=== PATIENT | female | born 1985 | race Caucasian/White ===

== ENCOUNTER 2018-06-13 14:54 | Inpatient (IN) | payer OTHER ==
[2018-06-13] MEDS ORDERED: ceFAZolin IN SWFI 2 GM/20 ML SYRINGE IVP ONE (16:26)
[2018-06-13] MEDS ORDERED: LACTATED RINGERS 1,000 ML IV ONE (16:26)
[2018-06-13] MEDS ORDERED: CITRIC ACID-SODIUM CITRATE 15 ML CUP PO ONE (16:26)
[2018-06-13] MEDS ORDERED: ceFAZolin 1,000 MG VIAL ONE (16:30)
[2018-06-13] MEDS ORDERED: OXYTOCIN 10 UNIT/ML 1 ML VIAL ONE (16:30)
[2018-06-13] MEDS ORDERED: ONDANSETRON 4 MG/2 ML VIAL ONE (16:30)
[2018-06-13] MEDS ORDERED: DEXAMETHASONE SOD PHOS (MDV) 100 MG/10 ML VIAL ONE (16:30)
[2018-06-13] MEDS ORDERED: LACTATED RINGERS 1,000 ML BAG IV ONE (16:30)
[2018-06-13] MEDS ORDERED: KETOROLAC 30 MG/ML 1 ML VIAL ONE (16:30)
[2018-06-13] MEDS ORDERED: MORPHINE SULFATE (PF) 0.3 MG/0.3 ML SYR ONE (16:30)
--- NOTE | 2018-06-13 16:34 | P.HPOB ---
History of Present Illness H&P Date: 06/13/18 Chief Complaint: 40-2/7 weeks, labor, category 3 heart tracing The patient is a 32-year-old 1 para 0 admitted at 40-2/7 weeks as established by last menstrual period and 19 week ultrasound. She is admitted from the office with significant contractions for rule out labor. Her has been complicated by a third trimester diagnosis of intrauterine growth restriction with the fetus consistently remaining between 7-90 percentile growth. testing included twice-weekly nonstress testing, weekly SD ratios, and weekly amniotic fluid index all of which have been reassuring throughout up until today. Though she carries the technical diagnosis of intr auterine growth restriction, the thinking was that she had a constitutionally small baby as both she and her were less than 6 pounds at . She was sent from the office as noted above today with contractions and her cervix 2 cm. On labor and delivery, she was found to have repetitive subtle decelerations which appeared to potentially be late in nature and then had a prolonged a deep deceleration of approximately 6-7 minutes into the 60s with slow return. It did ultimately return to baseline but continues to have relatively minimal variability. At this time, the tracing is category 3 and requires intervention immediately. As result she will be taken to the operating room for primary low-transverse section. Obstetrical history: 1 para 0 with current statistics listed in history of present illness. EDC of 06/11/2018 was established by last menstrual period and confirmed by 19 week ultrasound. Laboratory workup demonstrates a blood type of O+ with a negative antibody screen. Rubella status is immune. Remainder of the laboratory workup was within normal limits. One hour Glucola was normal and group B strep status is negative. Gynecologic history: Unremarkable with no history of any infections to include STDs. Review of Systems Review of systems is confined to history of present illness. Past Medical History History of Any Multi-Drug Resistant Organisms: None Reported Smoking Status: Never smoker Medications and Allergies Home Medications Medication Instructions Recorded Confirmed Type Pnv,Calcium 72/Iron/Folic Acid 1 each PO DAILY 06/13/18 06/13/18 History [ Plus Tablet] RX: Amoxicillin 500 mg PO Q12HR 06/13/18 06/13/18 History Allergies Allergy/AdvReac Type Severity Reaction Status Date / Time No Known Allergies Allergy Verified 06/13/18 15:12 Exam Vital Signs Temp Pulse Resp BP Pulse Ox 06/13/18 15:13 98.2 F 71 18 133/94 99 Intake and Output 06/13/18 06/13/18 06/13/18 06:59 14:59 22:59 Other: Weight 81.193 kg In general, this is a well-developed, well-nourished white female in no acute distress. Her heart has a regular rhythm and rate without murmur. Her lungs are clear to auscultation bilaterally in all bermeo. Her abdomen is gravid, nondistended, has normal active bowel sounds, soft, nontender, and without any palpable masses aside from uterine fundus. Her extremities are without any cyanosis, clubbing, or edema and are nontender to palpation bilaterally. Digital cervical examination on straights her cervix to be 2 cm dilated, 70% effaced, the vertex in presentation at -1 station. Assessment and Plan (1) Active labor at term Current Visit: Yes Status: Acute Code(s): PUO0211 - SNOMED Code(s): 92088052 (2) Non-reassuring electronic monitoring tracing Current Visit: Yes Status: Acute Code(s): O76 - ABNLT IN HEART RATE AND RHYTHM COMP LABOR AND DELIVERY SNOMED Code(s): 126279704 (3) Post-dates Current Visit: Yes Status: Acute Code(s): O48.0 - POST-TERM SNOMED Code(s): 00989199 Plan: Given the findings as described in history of present illness, I have counseled the patient and her regarding the need for immediate delivery. We will proceed to the operating room for primary low-transverse section.
[2018-06-13 16:39] LABS: Basophils # (A) 0.1 k/uL (0-0.2); Basophils % (A) 0 %; Eosinophils % (A) 0 %; HCT 47.2 % (34.0-46.0); HGB 15.8 gm/dL (11.4-16.0); Lymphocytes # (A) 1.6 k/uL (1.0-4.8); Lymphocytes % (A) 16 %; MCH 32.5 pg (25.0-35.0); MCHC 33.5 g/dL (31.0-37.0); MCV 96.9 fL (80.0-100.0); Mean Platelet Volume 8.7; Monocytes # (A) 0.4 k/uL (0-1.0); Monocytes % (A) 4 %; Neutrophils # (A) 8.2 k/uL (1.3-7.7); Neutrophils % (A) 78 %; Platelet Count 164 k/uL (150-450); RBC 4.87 m/uL (3.80-5.40); RDW 13.8 % (11.5-15.5); WBC 10.5 k/uL (3.8-10.6)
[2018-06-13] MEDS ORDERED: MORPHINE SULFATE 2 MG/ML SYRINGE IVP PRN (16:54)
[2018-06-13] MEDS ORDERED: diphenhydrAMINE 50 MG/ML 1 ML VIAL IVP PRN ×3 (16:54→17:29)
[2018-06-13] MEDS ORDERED: NALOXONE 0.4 MG/ML 1 ML VIAL IV PRN ×2 (16:54→17:29)
[2018-06-13] MEDS ORDERED: ONDANSETRON 4 MG/2 ML VIAL IVP PRN ×2 (16:54→17:29)
[2018-06-13] MEDS ORDERED: diphenhydrAMINE 25 MG CAP PO PRN (17:29)
[2018-06-13] MEDS ORDERED: HYDROcodone/APAP 7.5-325MG 1 EACH TAB PO PRN (17:29)
[2018-06-13] MEDS ORDERED: METOCLOPRAMIDE 5 MG/ML 2 ML VIAL IVP PRN (17:29)
[2018-06-13] MEDS ORDERED: diphenhydrAMINE 50 MG CAP PO PRN (17:29)
[2018-06-13] MEDS ORDERED: LANOLIN CREAM 5 GM TUBE TOPICAL PRN (17:29)
[2018-06-13] MEDS ORDERED: KETOROLAC 30 MG/ML 1 ML VIAL IVP PRN (17:29)
[2018-06-13] MEDS ORDERED: ACETAMINOPHEN TAB 325 MG TAB PO PRN (17:29)
[2018-06-13] MEDS ORDERED: ZOLPIDEM 5 MG TAB PO PRN (17:29)
[2018-06-13] MEDS ORDERED: OXYTOCIN 20 UNITS/1000 ML NS 1,000 ML IV SCH (17:30)
--- NOTE | 2018-06-13 17:38 | P.OP ---
Date of Procedure: 06/13/18 Preoperative Diagnosis: #1. 40-2/7 weeks, category 3 heart tracing remote from delivery #2. IUGR Postoperative Diagnosis: Same plus #3. Particulate meconium-stained fluid Procedure(s) Performed: #1. Primary low-transverse section Anesthesia: spinal, other Surgeon: Kendrick Carrion Director Mission [facility]: Kamryn Abarca Estimated Blood Loss (ml): 500 IV fluids (ml): 1,400 Urine output (ml): 300 Pathology: other (Placenta) Condition: stable Disposition: floor Operative Findings: Preoperatively, the patient was noted in triage to have multiple subtle decelerations possibly consistent with late decelerations and then had a roughly 6 minute prolonged a deep deceleration to the 60s with minimal variability making for a category 3 heart rate tracing remote from delivery. As result she was counseled regarding section and taken to the operating room where she was delivered of a viable 6 lbs. 6 oz. baby girl with Apgars of 7 at 1 minute and 9 at 5 minutes delivered in the right occiput transverse position. The nose and mouth were thoroughly suctioned on the abdomen prior to delivery of the . The placenta was delivered manually and intact but was sent for pathological diagnoses. cord blood was collected per protocol. The uterus, tubes, and ovaries were entirely normal aside from a very small anterior low fundal fibroid less than 1 cm in size. Description of Procedure: The patient was prepped and draped in usual fashion after spinal anesthesia was administered by the anesthesiologist. A Pfannenstiel incision was made and extended into the abdominal cavity without difficulty. The bladder peritoneum was noted to be significantly distal to the intended site of incision and was left intact. A 2 cm incision was made in the transverse plane of the lower uterine segment to enter the uterus at which time meconium-stained fluid was noted. The incision was extended in both directions using the bandage scissors. The head was delivered up and through the incision where the nose and mouth were thoroughly suctioned for meconium. The infant was then delivered onto the field where the cord was doubly clamped, cut, and the passed for resuscitative measures with weight and Apgars as noted above. A segment of cord was doubly clamped, cut, and set aside should cord gases be necessary after having collected cord blood secondary to maternal blood type of O+. The placenta was delivered manually and intact as noted above. The uterus was exteriorized and the interior cavity swept of any remaining placental or m embranous fragments. The margins of the incision were grasped with Garsia clamps and the incision closed in 2 layers. The first layer was a running locking stitch of 0 chromic catgut followed by a running imbricating layer of 0 chromic catgut, each from margin to margin. There were noted to be 2 points of bleeding just on either side of the midline which required [id number] stitches of 0 chromic catgut for hemostasis. The posterior cul-de-sac was suctioned with a guard and then sponged with a laparotomy sponge. The uterine and ovarian findings were as noted above, entirely normal. The uterus was replaced within the abdominal cavity and the gutters swept of any remaining blood, fluid, or clot. Once hemostasis of the incision had been established, the parietal peritoneum was loosely reapproximated and layer of muscles examined and found to be hemostatic. The fascia was closed with 2 running stitches of 0 Vicryl proceeding from lateral margins to the midpoint. The subcutaneous tissues were irrigated, made hemostatic with the Bovie, and not closed as they were less than 2 cm in depth. The skin was reapproximated with a running subcuticular stitch of 4-0 Vicryl from margin to margin followed by half-inch Steri-Strips placed with Mastisol. Estimated blood loss for the case was approximately 500 mL. There were no complications. All sponge, instrument, and needle counts were correct. Both mother and are resting comfortably in recovery though the has been taken to special care nursery for observation secondary to some labored breathing.
[2018-06-13] MEDS: LACTATED RINGERS 1,000 ML IV SCH ×3 (20:17→20:20)
[2018-06-13] MEDS: SENNOSIDES-DOCUSATE SODIUM 1 EACH TAB PO SCH (20:21)
[2018-06-14] MEDS: LACTATED RINGERS 1,000 ML IV SCH ×2 (01:47→19:41)
--- NOTE | 2018-06-14 05:43 | P.PN ---
Progress Note - Text Progress Note Date: 06/14/18 32 yo female status post . Post-op day #1. Patient received intrathecal Duramorph. Patient was seen today, no complaints, pain VAS score 0/10, no headache, no itching, no nausea and vomiting. Assessment and plan: Doing well in general no complications from anesthesia.
[2018-06-14 06:08] LABS: Basophils % (A) 0 %; Eosinophils % (A) 0 %; Lymphocytes # (A) 1.8 k/uL (1.0-4.8); Lymphocytes % (A) 15 %; MCH 32.5 pg (25.0-35.0); MCHC 34.2 g/dL (31.0-37.0); Monocytes # (A) 0.5 k/uL (0-1.0); Monocytes % (A) 4 %; Neutrophils # (A) 9.7 k/uL (1.3-7.7); Neutrophils % (A) 80 %; Platelet Count 149 k/uL (150-450); RBC 3.79 m/uL (3.80-5.40); RDW 13.4 % (11.5-15.5); WBC 12.2 k/uL (3.8-10.6)
[2018-06-14 06:19] LABS: HGB 12.3 gm/dL (11.4-16.0)
[2018-06-14] MEDS: IBUPROFEN 600 MG TAB PO PRN ×3 (08:17→19:57)
--- NOTE | 2018-06-14 08:45 | P.PNOBGPC ---
Subjective - Subjective Patient reports: Reports appetite normal, Reports voiding normally, Reports pain well controlled, Reports ambulating normally [place]: doing well, in NICU (Weaning from high flow oxygen, will try feeding today.) Objective - Vital Signs Latest vital signs: Vital Signs Temp Pulse Resp BP Pulse Ox 06/14/18 08:00 97.4 F L 69 16 127/86 100 06/14/18 05:50 16 06/14/18 04:00 97.7 F 53 L 16 118/71 06/14/18 01:49 16 06/13/18 23:30 97.4 F L 60 16 125/78 98 06/13/18 22:00 16 06/13/18 20:00 97.5 F L 55 L 16 130/91 98 06/13/18 19:39 97.5 F L 55 L 16 130/91 06/13/18 19:09 55 L 16 139/86 100 06/13/18 18:39 70 16 143/87 100 06/13/18 18:24 57 L 16 150/69 100 06/13/18 18:09 98.0 F 56 L 16 117/78 100 06/13/18 17:54 63 16 122/83 100 06/13/18 17:39 98.0 F 58 L 16 115/74 06/13/18 16:54 18 98 06/13/18 15:13 98.2 F 71 18 133/94 99 Intake and Output 06/13/18 06/14/18 06/14/18 22:59 06:59 14:59 Output Total 700 250 900 Balance -700 -250 -900 Output: Urine 400 250 900 Uretheral (Zhao) 100 Emesis 300 Other: # Voids 1 # Emeses 1 Weight 81.193 kg - Exam Extremities: Present: normal Abdomen: Present: normal appearance, soft. Absent: distention, tenderness Incision: Present: normal, dry, intact Uterus: Present: normal, firm (The uterine fundus is tonic and nontender around the umbilicus.) - Labs Labs: Abnormal Lab Results - Last 24 Hours (Table) 06/13/18 06/14/18 Range/Units 16:00 05:35 WBC 12.2 H (3.8-10.6) k/uL RBC 3.79 L (3.80-5.40) m/uL Hct 47.2 H (34.0-46.0) % Plt Count 149 L (150-450) k/uL Neutrophils # 8.2 H 9.7 H (1.3-7.7) k/uL Assessment and Plan (1) Active labor at term Current Visit: Yes Status: Acute Code(s): FUC7850 - SNOMED Code(s): 54759548 (2) Non-reassuring electronic monitoring tracing Current Visit: Yes Status: Acute Code(s): O76 - ABNLT IN HEART RATE AND RHYTHM COMP LABOR AND DELIVERY SNOMED Code(s): 202925723 (3) Post-dates Current Visit: Yes Status: Acute Code(s): O48.0 - POST-TERM SNOMED Code(s): 66795772 (4) S/P section Current Visit: Yes Status: Acute Code(s): Z98.891 - HISTORY OF UTERINE SCAR FROM PREVIOUS SURGERY SNOMED Code(s): 343852148 Plan: Continue routine postoperative and care. The patient will likely remain in the hospital until the infant is released or postoperative day #4, whichever comes first. I have encouraged her to ambulate routinely in the hallways.
[2018-06-14] MEDS: SENNOSIDES-DOCUSATE SODIUM 1 EACH TAB PO SCH ×2 (15:52→19:58)
[2018-06-14] MEDS: HYDROcodone/APAP 5-325MG 1 EACH TAB PO PRN (23:18)
[2018-06-15] MEDS: IBUPROFEN 600 MG TAB PO PRN ×3 (01:48→23:51)
[2018-06-15] MEDS: HYDROcodone/APAP 5-325MG 1 EACH TAB PO PRN ×3 (05:04→19:27)
[2018-06-15] MEDS: SENNOSIDES-DOCUSATE SODIUM 1 EACH TAB PO SCH ×2 (08:10→19:27)
--- NOTE | 2018-06-15 08:53 | P.PNOBGPC ---
Subjective - Subjective Patient reports: Reports appetite normal, Reports voiding normally, Reports pain well controlled, Reports ambulating normally : doing well, in NICU (Finishing prophylactic antibiotics pending blood cultures.), nursing well Objective - Vital Signs Latest vital signs: Vital Signs Temp Pulse Pulse Resp BP Pulse Ox 06/15/18 08:45 97.8 F 100 16 116/78 100 06/15/18 00:00 97.8 F 82 16 120/73 06/14/18 18:00 16 06/14/18 16:00 97.6 F 92 16 117/70 97 06/14/18 14:00 16 06/14/18 12:00 98.2 F 87 16 132/82 98 06/14/18 11:59 16 06/14/18 10:00 16 Intake and Output 06/14/18 06/15/18 06/15/18 22:59 06:59 14:59 Other: # Voids 1 1 - Exam Extremities: Present: normal Abdomen: Present: normal appearance, soft. Absent: distention, tenderness Incision: Present: normal, dry, intact Uterus: Present: normal, firm (The uterine fundus is tonic and nontender below the umbilicus.) Assessment and Plan (1) Active labor at term Current Visit: Yes Status: Acute Code(s): NVZ6054 - SNOMED Code(s): 90854642 (2) Non-reassuring electronic monitoring tracing Current Visit: Yes Status: Acute Code(s): O76 - ABNLT IN HEART RATE AND RHYTHM COMP LABOR AND DELIVERY SNOMED Code(s): 793095327 (3) Post-dates Current Visit: Yes Status: Acute Code(s): O48.0 - POST-TERM SNOMED Code(s): 90848272 (4) S/P section Current Visit: Yes Status: Acute Code(s): Z98.891 - HISTORY OF UTERINE SCAR FROM PREVIOUS SURGERY SNOMED Code(s): 036655246 Plan: Continue routine postoperative and care. Discharge home is possible tomorrow pending the status of the . Should the infant. Released, the patient will undoubtedly be discharged pending complications. She is performing all activities of daily living. She reports the is nursing well.
[2018-06-16] MEDS: HYDROcodone/APAP 5-325MG 1 EACH TAB PO PRN ×2 (02:28→09:58)
--- NOTE | 2018-06-16 08:49 | P.DS ---
Providers Date of admission: 06/13/18 16:21 Expected date of discharge: 06/16/18 Attending physician: Kendrick Carrion Primary care physician: Kendrick Carrion - Discharge Diagnosis(es) (1) Active labor at term Current Visit: Yes Status: Acute (2) Non-reassuring electronic monitoring tracing Current Visit: Yes Status: Acute (3) Post-dates Current Visit: Yes Status: Acute (4) S/P section Current Visit: Yes Status: Acute Hospital Course: The patient is a 32-year-old 1 para 0 admitted at 40-2/7 weeks by good dating parameters. She is admitted from the office 04 possible early labor. Her was complicated by the diagnosis of intrauterine growth restriction though the fetus was actually thought to be constitutionally small based upon maternal and paternal weights. All testing had been reassuring. Once in triage, she was found to have subtle repetitive decelerations which were thought to be late in nature and then had a prolonged deep decelerations which ultimately did recover to baseline. There was minimal long-term variability and the tracing was rated as category 3. As result and with her remoteness from delivery, the patient was counseled and taken the operating room where she underwent a primary low-transverse section and was delivered of a viable 6 lbs. 6 oz. baby girl with Apgars of 7 at 1 minute and 9 at 5 minutes. There was thick meconium noted at the time of delivery. The patient's and postoperative courses were unremarkable with vital signs being stable and attempt was afebrile throughout. The infant did require admission to the special care nursery for prophylactic antibiotics and initial oxygen supplementation which resolved fairly quickly. Both were deemed stable for discharge on postoperative and day #3 over therefore discharged home to follow-up in the office in 2 weeks for an incision check and 6 weeks routinely. Discharge instructions included calling for any significantly increased bleeding or foul-smelling lochia, significantly increased fever abdominal pain, perineal complaints, breast complaints, in cisional complaints, or anything else that concerned her. She was additionally instructed to have nothing in the vagina for at least 6 weeks time and to abstain from any heavy lifting over the same period of time. She was last instructed to do no driving until off of all pain medications or 2 weeks' time, whichever came first. She understood her instructions and agrees to follow up as noted above. Discharge medications included a prescription for [place] 5/500 mg, 1-2 by mouth every 6 hours when necessary pain, #20 dispensed with no refills. She additionally was to continue to take vitamins daily as she has opted to breast-feed and she certainly can use [id number] analgesic pain medications as needed. Maternal blood type is O+ and rubella status is immune. Discharge hemoglobin and hematocrit were 12.3 and 36.0 respectively Procedures: #1. Primary low-transverse section Patient Condition at Discharge: Stable Plan - Discharge Summary New Discharge Prescriptions: No Action Amoxicillin 500 mg PO Q12HR Pnv,Calcium 72/Iron/Folic Acid [ Plus Tablet] 1 each PO DAILY Discharge Medication List Amoxicillin 500 mg PO Q12HR 06/13/18 [History] Pnv,Calcium 72/Iron/Folic Acid [ Plus Tablet] 1 each PO DAILY 06/13/18 [History] Follow up Appointment(s)/Referral(s): Kendrick Carrion MD [Primary Care Provider] - 2 Weeks Discharge Disposition: HOME SELF-CARE
[2018-06-16] MEDS: SENNOSIDES-DOCUSATE SODIUM 1 EACH TAB PO SCH (09:58)
[2018-06-16 10:23] VITALS: BP 122/89; PULSE 105; RESP 18; TEMP 98.1
== END 2018-06-16 13:03 | disposition home or self-care (01) | DRG 788 ==
LOC: FBPOP 14:54 → 4FBP 16:21
PROVIDERS: ADMIT Obstetrics & Gynecology; ATTEND Obstetrics & Gynecology
PROC: 10D00Z1 Extraction of Products of Conception, Low, Open Approach (ICD-10-PCS; principal; 2018-06-13 16:30)
DX: O76 Abnormality in fetal heart rate and rhythm complicating labor and delivery (principal); O36.5930 Maternal care for other known or suspected poor fetal growth, third trimester, not applicable or unspecified; O77.0 Labor and delivery complicated by meconium in amniotic fluid; O99.62 Diseases of the digestive system complicating childbirth; K21.9 Gastro-esophageal reflux disease without esophagitis; O48.0 Post-term pregnancy; O34.13 Maternal care for benign tumor of corpus uteri, third trimester; D25.9 Leiomyoma of uterus, unspecified; Z37.0 Single live birth; Z3A.40 40 weeks gestation of pregnancy
CPT/HCPCS: 85025; 86850; 86900; 86901; 88307

== ENCOUNTER 2018-06-18 19:21 | Emergency (ER) | payer OTHER ==
[2018-06-18 19:36] VITALS: TEMP 97.6
--- NOTE | 2018-06-18 19:55 | ED ---
Extremity Problem HPI - General Source: patient Mode of arrival: ambulatory Limitations: no limitations <Erin Prater - Last Filed: 06/18/18 23:41> <Kathy Robin - Last Filed: 06/20/18 03:18> - General Chief complaint: Extremity Problem,Nontraumatic Stated complaint: lt leg swelling Time Seen by Provider: 06/18/18 19:39 - History of Present Illness Initial comments: 32-year-old female patient who is 4 days presents to the emergency department today for evaluation of left leg swelling. Patient states that she did have a delivery on the . States she did have leg swelling upon discharge from the hospital initially thought was related to receiving IV fluids. Patient states that the right leg has gone down and swelling to the left leg has not. She denies any pain or discomfort to the leg. Denies any redness. States that she did speak to her BOARD HAMMER OPERATOR about this today who sent her here to rule out DVT. Patient denies any fever or chills with this. Denies any dizziness or weakness. Denies any headache, numbness, or tingling. Patient denies any recent rash, shortness breath, chest pain, abdominal pain, nausea, vomiting, diarrhea, constipation, back pain, hematuria, dysuria, urinary urgency, urinary frequency, headache, visual changes, or any other complaints. (Erin Prater) - Related Data Home Medications Medication Instructions Recorded Confirmed Pnv,Calcium 72/Iron/Folic Acid 1 each PO DAILY 06/13/18 06/18/18 [ Plus Tablet] HYDROcodone/APAP 5-325MG [[place] 1 tab PO Q6HR PRN 06/18/18 06/18/18 5-325] Allergies Allergy/AdvReac Type Severity Reaction Status Date / Time No Known Allergies Allergy Verified 06/13/18 15:12 Review of Systems ROS Other: All systems not noted in ROS Statement are negative. <Erin Prater - Last Filed: 06/18/18 23:41> ROS Other: All systems not noted in ROS Statement are negative. <Kathy Robin - Last Filed: 06/20/18 03:18> ROS Statement: Those systems with pertinent positive or pertinent negative responses have been documented in the HPI. Past Medical History Past Medical History: No Reported History History of Any Multi-Drug Resistant Organisms: None Reported Past Surgical History: Section Past Psychological History: No Psychological Hx Reported Smoking Status: Never smoker Past Alcohol Use History: None Reported Past Drug Use History: None Reported <Erin Prater Amarjit - Last Filed: 06/18/18 23:41> General Exam Limitations: no limitations General appearance: alert, in no apparent distress, other (This is a well- developed, well-nourished adult female patient in no acute distress. Vital signs upon presentation are temperature 97.6F, pulse 82, respirations 20, blood pressure 144/91, pulse ox 99% on room air.) Eye exam: Present: normal appearance, PERRL, EOMI. Absent: scleral icterus, conjunctival injection, periorbital swelling ENT exam: Present: normal exam, normal oropharynx, mucous membranes moist Respiratory exam: Present: normal lung sounds bilaterally. Absent: respiratory distress, wheezes, rales, rhonchi, stridor Cardiovascular Exam: Present: regular rate, normal rhythm, normal heart sounds. Absent: systolic murmur, diastolic murmur, rubs, gallop, clicks GI/Abdominal exam: Present: soft, normal bowel sounds. Absent: distended, tenderness, guarding, rebound, rigid Extremities exam: Present: full ROM, normal capillary refill, other (Bilateral lower extremities edema, worse on the left than the right. 2+ pitting noted to the left ankle and foot. 1+ pitting to the right ankle and foot.). Absent: normal inspection, tenderness, pedal edema, joint swelling, calf tenderness Neurological exam: Present: alert, oriented X3, CN II-XII intact Psychiatric exam: Present: normal affect, normal mood Skin exam: Present: warm, dry, intact, normal color. Absent: rash <Erin Prater - Last Filed: 06/18/18 23:41> Course Vital Signs 06/18/18 06/18/18 19:31 21:58 Temperature 97.6 F Pulse Rate 82 70 Respiratory 20 18 Rate Blood Pressure 144/91 135/97 O2 Sat by Pulse 99 98 Oximetry Medical Decision Making - Lab Data Result diagrams: 06/18/18 20:08 06/18/18 20:08 - Radiology Data Radiology results: report reviewed <Erin Prater - Last Filed: 06/18/18 23:41> - Lab Data Result diagrams: 06/18/18 20:08 06/18/18 20:08 <Kathy Robin - Last Filed: 06/20/18 03:18> - Medical Decision Making 32-year-old female patient presented to the emergency department today for evaluation of lower extremity swelling worse on the left side. Patient's blood pressure is elevated to 140/91 with readings at 140/100 while in the department. Labs reviewed and were unremarkable. Patient is negative for any laboratory evidence for preeclampsia. Ultrasound of the left lower extremity was obtained was negative for any evidence of DVT. I did call and discuss the case with the BOARD HAMMER OPERATOR on-call Dr. Abreu who agrees to have patient discharged at this time and then come in for a blood pressure recheck on Wednesday or Wednesday. I did discuss all findings and results with the patient. She is instructed to follow- up Wednesday or Wednesday. She is given JANET hose for lower extremities swelling, she is educated regarding elevation of her legs. Return parameters were discussed in detail. She verbalizes understanding and agrees with this plan. (Erin Prater) I was available for consultation in the emergency department. The history and physical exam were done by the midlevel provider. I was consulted for this patient's care. I reviewed the case with the midlevel provider and based on their presentation of the patient, I agree with the assessment, medical decision making and plan of care as documented. Chart was dictated using [employer] dictation software. Attempts were made to correct any dictation errors however some typographical errors may persist. (Kathy Robin) - Lab Data Lab Results 06/18/18 06/18/18 06/18/18 Range/Units 20:08 20:08 20:25 WBC 7.0 (3.8-10.6) k/uL RBC 3.48 L (3.80-5.40) m/uL Hgb 11.4 (11.4-16.0) gm/dL Hct 34.1 (34.0-46.0) % MCV 97.8 (80.0-100.0) fL MCH 32.6 (25.0-35.0) pg MCHC 33.3 (31.0-37.0) g/dL RDW 13.0 (11.5-15.5) % Plt Count 363 D (150-450) k/uL Neutrophils % 67 % Lymphocytes % 23 % Monocytes % 5 % Eosinophils % 3 % Basophils % 0 % Neutrophils # 4.7 (1.3-7.7) k/uL Lymphocytes # 1.6 (1.0-4.8) k/uL Monocytes # 0.4 (0-1.0) k/uL Eosinophils # 0.2 (0-0.7) k/uL Basophils # 0.0 (0-0.2) k/uL Sodium 140 (137-145) mmol/L Potassium 4.0 (3.5-5.1) mmol/L Chloride 109 H (98-107) mmol/L Carbon Dioxide 26 (22-30) mmol/L Anion Gap 5 mmol/L BUN 10 (7-17) mg/dL Creatinine 0.55 (0.52-1.04) mg/dL Est GFR (CKD-EPI)AfAm >90 (>60 ml/min/1.73 sqM) Est GFR (CKD-EPI)NonAf >90 (>60 ml/min/1.73 sqM) Glucose 86 (74-99) mg/dL Uric Acid 3.9 (3.7-7.4) mg/dL Calcium 8.6 (8.4-10.2) mg/dL Total Bilirubin 0.3 (0.2-1.3) mg/dL AST 25 (14-36) U/L ALT 43 (9-52) U/L Alkaline Phosphatase 101 (38-126) U/L Lactate Dehydrogenase 336 (313-618) U/L Total Protein 5.5 L (6.3-8.2) g/dL Albumin 2.9 L (3.5-5.0) g/dL Urine Color Light Yellow Urine Appearance Clear (Clear) Urine pH 7.0 (5.0-8.0) Ur Specific [place] 1.006 (1.001-1.035) Urine Protein Negative (Negative) Urine Glucose (UA) Negative (Negative) Urine Ketones Negative (Negative) Urine Blood Small H (Negative) Urine Nitrite Negative (Negative) Urine Bilirubin Negative (Negative) Urine Urobilinogen <2.0 (<2.0) mg/dL Ur Leukocyte Esterase Negative (Negative) Urine RBC 3 (0-5) /hpf Urine WBC <1 (0-5) /hpf Ur Squamous Epith Cells <1 (0-4) /hpf Urine Mucus Rare H (None) /hpf - Radiology Data Ultrasound of the left lower extremity was obtained. Report was reviewed in its entirety. Impression by Dr. Hewitt shows no evidence for DVT in the left lower extremities. (Erin Prater) Disposition Is patient prescribed a controlled substance at d/c from ED?: No Time of Disposition: 21:57 <Erin Prater - Last Filed: 06/18/18 23:41> <Kathy Robin - Last Filed: 06/20/18 03:18> Clinical Impression: Lower extremity edema Disposition: HOME SELF-CARE Condition: Good Instructions (If sedation given, give patient instructions): Leg Edema (ED) Additional Instructions: Keep legs elevated. Wear JANET hose or compression stockings to aid with sw elling. Follow-up with your BOARD HAMMER OPERATOR and your primary care physician for recheck as soon as possible. Return to the emergency department immediately for any new, worsening, or concerning symptoms. Referrals: Taj Luis DO [Primary Care Provider] - 1-2 days
[2018-06-18 20:22] LABS: RBC 3.48 m/uL (3.80-5.40)
[2018-06-18 20:23] LABS: Basophils % (A) 0 %; Eosinophils # (A) 0.2 k/uL (0-0.7); Eosinophils % (A) 3 %; HCT 34.1 % (34.0-46.0); HGB 11.4 gm/dL (11.4-16.0); Lymphocytes # (A) 1.6 k/uL (1.0-4.8); Lymphocytes % (A) 23 %; MCH 32.6 pg (25.0-35.0); MCHC 33.3 g/dL (31.0-37.0); MCV 97.8 fL (80.0-100.0); Monocytes # (A) 0.4 k/uL (0-1.0); Monocytes % (A) 5 %; Neutrophils # (A) 4.7 k/uL (1.3-7.7); Neutrophils % (A) 67 %
[2018-06-18 20:35] LABS: Platelet Count 363 k/uL (150-450)
[2018-06-18 20:36] LABS: ALT 43 U/L (9-52); AST 25 U/L (14-36); Albumin 2.9 g/dL (3.5-5.0); Alkaline Phosphatase 101 U/L (38-126); Anion Gap 5 mmol/L; Blood Urea Nitrogen 10 mg/dL (7-17); Calcium 8.6 mg/dL (8.4-10.2); Carbon Dioxide 26 mmol/L (22-30); Chloride 109 mmol/L (98-107); Glucose 86 mg/dL (74-99); LDH 336 U/L (313-618); Sodium 140 mmol/L (137-145); Total Bilirubin 0.3 mg/dL (0.2-1.3); Total Protein 5.5 g/dL (6.3-8.2); Uric Acid 3.9 mg/dL (3.7-7.4)
[2018-06-18 20:43] LABS: Appearance,Urine Clear (Clear); Bilirubin,Urine Negative (Negative); Blood,Urine Small (Negative); Color,Urine Light Yellow; Glucose,Urine (UA) Negative (Negative); Ketones,Urine Negative (Negative); Leukocyte Esterase,Urine Negative (Negative); Mucus,Urine Rare /hpf; Nitrite,Urine Negative (Negative); Protein,Urine Negative (Negative); RBC,Urine 3 /hpf (0-5); Specific Gravity,Urine 1.006 (1.001-1.035); Squamous Epithelial Cell,Urine <1 /hpf (0-4); Urobilinogen,Urine <2.0 mg/dL (<2.0); WBC,Urine <1 /hpf (0-5)
--- NOTE | 2018-06-18 21:48 | US ---
EXAMINATION TYPE: US venous doppler duplex LE LT DATE OF EXAM: 06/18/2018 7:48 PM COMPARISON: NONE CLINICAL HISTORY: 32-year-old female with Pain. SIDE PERFORMED: Left TECHNIQUE: The lower extremity deep venous system is examined utilizing real time linear array sonog karina with graded compression, doppler sonography and color-flow sonography. FINDINGS: VESSELS IMAGED: External Iliac Vein (EIV) Common Femoral Vein Deep Femoral Vein Greater Saphenous Vein * Femoral Vein Popliteal Vein Small Saphenous Vein * Proximal Calf Veins (* superficial vessels) Left Leg: Negative for DVT IMPRESSION: No evidence for DVT within the left lower extremity imaged from the groin to the upper calf.
[2018-06-18 22:00] VITALS: BP 135/97; PULSE 70; RESP 18
[2018-06-18] MEDS ORDERED: ACETAMINOPHEN TAB 500 MG TAB PO STA (22:17)
[2018-06-18] MEDS ORDERED: IBUPROFEN 600 MG TAB PO STA (22:17)
== END 2018-06-18 22:29 | disposition home or self-care (01) ==
LOC: EC 19:21
DX: O90.89 Other complications of the puerperium, not elsewhere classified (principal); R60.0 Localized edema; R03.0 Elevated blood-pressure reading, without diagnosis of hypertension; Z98.890 Other specified postprocedural states
CPT/HCPCS: 36415; 80053; 81001; 83615; 84550; 85025; 99284

== ENCOUNTER → 2020-05-06 | Outpatient (CLI) | payer OTHER ==
--- NOTE | 2020-05-06 15:35 | US ---
EXAMINATION TYPE: Ultrasound OB <= 14 week fetus DATE OF EXAM: 05/06/2020 3:05 PM COMPARISON: NONE CLINICAL HISTORY: 34-year-old female Absent heart tones O76. EXAM PERFORMED: Transvaginal (TV) and Transabdominal (TA) FINDINGS: EXAM MEASUREMENTS: GESTATIONAL AGE / DATING Physician Established: Not established Dates by LMP: (12 weeks/5 days) EDC: 11/13/20 Dates by First Scan: No Previous Dates by Current Scan for: (8 weeks/6 days) EDC: 12/10/2020 MATERNAL ANATOMY Uterus: 11.2 x 7.7 x 6.7 Right Ovary: 2.7 x 2.0 x 1.9 cm Left Ovary: 2.6 x 2.0 x 1.9 cm Post CDS / Adnexa: wnl Presence of free fluid: No Presence of corpus luteal cyst: No Presence of subchorionic bleed: No GESTATION / SURVEY CRL: No pole seen ( weeks/ days) MSD: 3.7 (8 weeks/6 days) Yolk Sac: Not seen Heart Rate: No heart rate IUP: No IUP seen at this time Date of LMP: 02/07/2020 Beta HcG (if available): Not available at this time IMPRESSION: Intrauterine fluid locule measuring 3.7 cm. If this corresponds to a gestational sac, this would plac e the at 8 weeks 6 days (discordant with GA by LMP which is 12 weeks 5 days). In addition, there is no pole or yolk sac identified. Correlate with serial beta hCG for failed or blighted ovum.
== END | disposition home or self-care (01) ==
LOC: RADUSWWP 14:38
PROVIDERS: ATTEND Obstetrics & Gynecology
DX: O76 Abnormality in fetal heart rate and rhythm complicating labor and delivery (principal); Z3A.08 8 weeks gestation of pregnancy
CPT/HCPCS: 76801

== ENCOUNTER → 2020-06-18 | Outpatient (CLI) | payer OTHER ==
[2020-06-18 08:17] LABS: Basophils % (A) 1 %; Eosinophils # (A) 0.1 k/uL (0-0.7); Eosinophils % (A) 2 %; HCT 48.8 % (34.0-46.0); HGB 15.3 gm/dL (11.4-16.0); Lymphocytes # (A) 1.7 k/uL (1.0-4.8); Lymphocytes % (A) 30 %; MCH 30.7 pg (25.0-35.0); MCHC 31.3 g/dL (31.0-37.0); Mean Platelet Volume 7.1; Monocytes # (A) 0.4 k/uL (0-1.0); Monocytes % (A) 8 %; Neutrophils # (A) 3.3 k/uL (1.3-7.7); Neutrophils % (A) 57 %; Platelet Count 278 k/uL (150-450); RBC 4.97 m/uL (3.80-5.40); RDW 12.9 % (11.5-15.5); WBC 5.8 k/uL (3.8-10.6)
== END | disposition home or self-care (01) ==
LOC: LABPAT 07:13
PROVIDERS: ATTEND Obstetrics & Gynecology
DX: Z01.818 Encounter for other preprocedural examination (principal); O02.0 Blighted ovum and nonhydatidiform mole
CPT/HCPCS: 36415; 85025

== ENCOUNTER 2020-06-20 10:16 | Day surgery (SDC) | payer OTHER ==
[2020-06-17 14:30] VITALS: BMI 25.2
[~2020-06-20 10:16] MED LIST: DEXAMETHASONE SOD PHOSPHATE 4 MG/ML 1 ML VIAL IV ONE; HYDROmorphone 0.5 MG/0.5 ML SYRINGE IVP PRN; LACTATED RINGERS 1,000 ML IV SCH; ONDANSETRON 4 MG/2 ML VIAL IVP ONE; Pre Op ABX Message 1 EACH MISC MISCELLANE ONE
[2020-06-20] MEDS ORDERED: LACTATED RINGERS 1,000 ML IV ONE ×2 (10:36→12:17)
[2020-06-20] MEDS ORDERED: fentaNYL (PF) 50 MCG/ML 50 ML VIAL ONE (11:48)
[2020-06-20] MEDS ORDERED: PROPOFOL 10 MG/ML 20 ML VIAL IV ONE (11:48)
[2020-06-20] MEDS ORDERED: METHYLERGONOVINE 0.2 MG/ML 1 ML AMP ONE (11:48)
[2020-06-20] MEDS ORDERED: MIDAZOLAM 2 MG/2 ML VIAL ONE (11:48)
[2020-06-20] MEDS ORDERED: LIDOCAINE 1% INJ 10MG/ML (20 ML MDV) ONE (11:48)
[2020-06-20] MEDS ORDERED: METOCLOPRAMIDE 5 MG/ML 2 ML VIAL IVP PRN (12:36)
[2020-06-20] MEDS ORDERED: ONDANSETRON 4 MG/2 ML VIAL IVP PRN (12:36)
[2020-06-20] MEDS ORDERED: Acetaminophen-Codeine 300-30mg TAB PO PRN ×2 (12:36)
[2020-06-20] MEDS ORDERED: KETOROLAC 15 MG/ML 1 ML VIAL IVP PRN (12:36)
[2020-06-20] MEDS ORDERED: IBUPROFEN 600 MG TAB PO PRN (12:36)
[2020-06-20] MEDS ORDERED: diphenhydrAMINE 50 MG/ML 1 ML VIAL IVP PRN (12:36)
[2020-06-20] MEDS ORDERED: SIMETHICONE 80 MG CHEWABLE PO PRN (12:36)
[2020-06-20] MEDS ORDERED: LACTATED RINGERS 1,000 ML IV SCH (12:45)
--- NOTE | 2020-06-20 12:47 | P.OP ---
Date of Procedure: 06/20/20 Preoperative Diagnosis: #1. 8 week missed , blighted ovum Postoperative Diagnosis: Same Procedure(s) Performed: #1. Dilation and aspiration curettage Anesthesia: other (Gen. by LMA) Surgeon: Kendrick Carrion Estimated Blood Loss (ml): 400 IV fluids (ml): 700 Urine output (ml): 200 Pathology: other (Intrauterine contents) Condition: stable Disposition: PACU Operative Findings: pelvic examination demonstrated a roughly 7 a week retroverted mobile normal shaped uterus with normal adnexa bilaterally. Intraoperatively, the uterus sounded to 10 cm. Tissue was clearly seen passing through the tubing on multiple passes with the aspiration curet while the sharp curet produced no significant tissue. Further pass of the aspiration curet continued to demonstrate some tissue present. As result, a polyp forceps was introduced through the cervix and a significant amount of tissue was able to be removed with gentle traction using the polyp forceps. Ultimately no further tissue was noted coming through the cervix either with sharp curettage, polyp forceps, or aspiration curettage. There was a moderate amount of bleeding after removal of the bulk of the tissue which was ultimately managed with 1 dose of Methergine 0.2 mg intramuscularly. At the end of the procedure, there was minimal ongoing bleeding. Description of Procedure: The patient was prepped and draped in usual fashion after general anesthesia was administered by the anesthesiologist. A weighted speculum was placed and the bladder drained of approximately 200 mL of clear nicole urine. The anterior lip the cervix was grasped with a single-tooth tenaculum and uterus sounded to 10 cm as noted above. Serial dilation was carried out to admit a #8 curved aspiration curet which was placed to the fundus of the uterus and suction applied. After adequate suction had been built, thorough and circumferential aspiration curettage was carried out from the fundus to the cervix with tissue closed seen passing through the tubing. Tissue again was noted on a second and third pass after which time the aspiration curet was set aside and sharp curette. Thorough and circumferential sharp curettage was carried out with minimal return of any tissue in the typical gritty texture was encountered throughout. Another pass was made with the aspiration curettage at which time further tissue was again noted. After 1 or 2 more passes with continued noting of tissue just inside the cervix with the aspiration curet, a polyp forceps was introduced and the tissue grasped and teased out at which time a significant amount of what appeared to be the placenta and membranes was noted. Further passes produced no further tissue. One last pass was made with the aspiration curet as well as a sharp curette at which time no further tissue was noted. Uterus was appreciably smaller both with the aspiration curet and to palpation. After removal of the bulk of the tissue, there was moderate to significant ongoing bleeding from the cervix as well as from the tenaculum site. The tenaculum site bleeding was made hemostatic with pressure. A dose of Methergine 0.2 mg IM was given and observation carried out as well as massage of the uterus manually. Approximately 1-2 minutes following administration of the Methergine, the bleeding had stopped to negligible. All instrumentation was then removed. There was no ongoing bleeding from any of the sites previously encountered. As her blood loss for the case was approximate 400 mL. There were no complications. All sponge, instrument, needle counts were correct. The patient tolerated the procedure well and proceeded to the recovery room in stable condition.
[2020-06-20 12:52] VITALS: RESP 16; TEMP 96.8
[2020-06-20 13:43] VITALS: BP 118/79; PULSE 60
== END 2020-06-20 14:02 | disposition home or self-care (01) ==
LOC: OR 10:16
PROVIDERS: ATTEND Obstetrics & Gynecology
DX: O02.0 Blighted ovum and nonhydatidiform mole (principal); Z82.49 Family history of ischemic heart disease and other diseases of the circulatory system; Z83.3 Family history of diabetes mellitus
CPT/HCPCS: 88305; 59820; J2250; J1100; J3010; J2210; J2405; J2001; J2704; 86850; 86900; 86901

== ENCOUNTER → 2022-02-06 | Outpatient (CLI) | payer BC ==
--- NOTE | 2022-02-06 09:33 | MM ---
Reason for Exam: Clinical finding. Baseline mammogram. Patient History: Menarche at age 12. First Full-Term at age 33. Late child-bearing (after 30). Last menstrual period: 01/07/2022 Risk Values: Sheila 5 year model risk: 0.5%. NCI Lifetime model risk: 13.8%. Prior Study Comparison: Patient's first Mammogram. Tissue Density: The breast tissue is heterogeneously dense. This may lower the sensitivity of mammography. Findings: Analyzed By CAD. No suspicious distortion or focal mass in either breast. Overall Assessment: Incomplete: need additional imaging evaluation, BI-RAD 0 Management: Diagnostic Breast Ultrasound of both breasts. Bilateral ultrasound due to pain and tenderness. Electronically signed and approved by: Og Martinez M.D.
--- NOTE | 2022-02-06 09:51 | USB ---
Reason for Exam: Clinical finding. Patient History: Menarche at age 12. First Full-Term at age 33. Late child-bearing (after 30). Risk Values: Sheila 5 year model risk: 0.5%. NCI Lifetime model risk: 13.8%. Findings: The upper outer quadrant of the left breast, the axilla of the left breast and the retroareolar of the left breast were scanned. Limited left breast ultrasound shows no solid or cystic masses or suspicious fluid collections. Overall Assessment: Negative, BI-RAD 1 Management: Screening Mammogram of both breasts at age 40. Manage patient symptoms clinically . Results were given to the patient verbally at the time of exam. Electronically signed and approved by: Og Martinez M.D.
== END | disposition home or self-care (01) ==
LOC: RADMAMWWP 08:49
PROVIDERS: ATTEND Family Medicine
DX: N64.4 Mastodynia (principal)
CPT/HCPCS: 77062; 77066